=== PATIENT | male | born 1990 | race Caucasian/White ===

== ENCOUNTER 2024-08-22 14:45 | Emergency (ER) | payer BC, SELFPAY ==
[2024-08-22] VITALS (8 sets, daily range): BP systolic 95–105; BP diastolic 61–77; BMI 43.1
[2024-08-22 15:31] LABS: % Basophils 0.4 % (0-2); % Eosinophils 3.4 % (0-6); % Immature Granulocytes 0.4 % (0-0.5); % Monocytes 5.9 % (1.7-9.3); % Neutrophils 58.9 % (42.2-75.2); Absolute Eosinophils 0.3 10^3/uL (0-0.7); Absolute Lymphocytes 2.6 10^3/uL (1.2-3.4); Absolute Monocytes 0.5 10^3/uL (0.1-0.6); Hematocrit 44.1 % (39.0-52.0); Hemoglobin 15.8 g/dL (13.0-18.0); Mean Corp Hgb Conc. 35.8 g/dL (33.0-37.0); Mean Corpuscular Volume 83.8 fL (80.0-94.0); Mean Platelet Volume 8.4 fL (7.4-10.4); Nucleated Red Blood Cells % 0 % (-); Platelet Count 335 10^3/uL (130-400); Red Blood Cell Count 5.26 10^6/uL (4.70-6.10); Red Cell Dist. Width 13.2 % (11.5-14.5); White Blood Cell Count 8.4 10^3/uL (4.8-10.8)
[2024-08-22 15:41] LABS: ALT (SGPT) 33 U/L (0-50); AST (SGOT) 28 U/L (17-59); Albumin 4.4 g/dl (3.5-5.0); Alkaline Phosphatase 93 U/L (38-126); Blood Urea Nitrogen 20 mg/dl (9-20); Calcium 9.6 mg/dl (8.4-10.2); Carbon Dioxide 23 mmol/L (22-30); Chloride 106 mmol/L (98-107); Glucose 135 mg/dl (70-99); Potassium 4.1 mmol/L (3.5-5.1); Sodium 138 mmol/L (135-145); Total Bilirubin 0.5 mg/dl (0.2-1.3); Total Protein 7.5 g/dl (6.3-8.2); eGFR > 60.00
[2024-08-22 16:18] LABS: TSH Reflex To Free T4 1.76 uIU/ml (0.47-4.68)
--- NOTE | 2024-08-22 16:23 | ED.GENMED ---
History of Present Illness
General
Chief Complaint: Heart Rate Problem
Source: patient and spouse
Exam Limitations: none
Time Seen by Provider: 08/22/24 16:06
Nursing documentation reviewed up to this point in time: agreed with
History of Present Illness
History of Present Illness:
34-year-old male PAF, on no meds, 1 prior admission to [place] seen by cardiology told to see pulmonary for sleep apnea started on BiPAP he does not snore anymore, he thinks he went into A-fib this morning, palpitations he felt sweaty, took
metoprolol as he was previously instructed put on his Apple Watch showed his heart rate was greater than 150, no documented fever, no chest pain no shortness of breath, previously seen by [place] cardiology but would like to follow-up here with
[place] [facility]ology
Past History
Past History
ED Past Medical History: Arrthythmia, HTN and Other (Migraines)
ED Past Surgical History: Other (Cervical Disc Arthroplasty, [place] Teeth Extraction)
Patient has exhibited threatening behavior?: No
Social History
Tobacco: Non-smoker
Alcohol: None
Drug: None
Personal:
Living: with family
Employment: Employed
Family History
Family History: Diabetes, Hypertension and Other (HLD)
Review of Systems
Review of Systems
All Other Systems: Not applicable
Constitutional: Reports other (Sweats); Denies fever or fatigue
Respiratory: Denies cough or trouble breathing
Cardiac: Reports diaphoresis and palpitations
ABD/GI: Reports no symptoms
: Reports no symptoms
Musculoskeletal: Reports no symptoms
Neurological: Reports dizzy
Endocrine: Reports no symptoms
Phy Exam
Physical Exam
Physical Exam:
Physical Exam
General: no apparent distress, not acutely ill
Neck: No jaundice
Heart: Tachycardic
Lungs: no acute respiratory distress. clear bilaterally
Abdomen: Nontender
Neuro: alert and oriented. no focal neurological deficits
Skin: no rash
Psychiatric: well kept. interactive and cooperative
Extremities: no edema. no calf tenderness.
Course
Orders/Labs/Results
Orders:
Orders
08/22/24 14:46
Electrocardiogram (*1) Urgent
Reason for Study: Atrial Fibrillation
EKG- Treatment ONCE
08/22/24 15:17
Complete Blood Count/With Diff Urgent
Comprehensive Metabolic Panel Urgent
TSH Reflex To Free T4 Urgent
08/22/24 16:18
Diltiazem HCl [Cardizem] 10 mg IV NOW STA
08/22/24 16:30
Diltiazem 125 mg/125 ml Nss [Cardizem] 125 mg in 125 ml IV PER PROTOCOL
Initial dose in mg/hr, then titrate:: 5
Titrate to keep:: Heart rate 80-100 bpm
Titrate by mg/hr:: 5 mg/hr
Frequency of titrations (minutes):: 15
Maximum dose in mg/hr:: 15
08/22/24 18:37
Diltiazem [Cardizem] 30 mg PO NOW STA
08/22/24 18:38
Apixaban [Eliquis] 5 mg PO NOW STA
Abnormal Lab Results
08/22/24
15:17
Glucose 135 H mg/dl
(70-99)
08/22/24 15:17
08/22/24 15:17
Vital Signs
Initial and Last Documented VS:
Initial Vital Signs
Temp Pulse Resp BP Pulse Ox
97.7 F 80 18 104/68 97
08/22/24 15:04 08/22/24 15:04 08/22/24 15:04 08/22/24 15:04 08/22/24 15:04
Last Documented Vital Signs
Temp Pulse Resp BP Pulse Ox
98.5 F 81 26 97/63 93
08/22/24 16:18 08/22/24 18:45 08/22/24 18:30 08/22/24 18:45 08/22/24 18:30
MDM/Problems Addressed
Differential Diagnosis Includes:
A-fib a flutter SVT
MDM/Problems Addressed:
Palpate
Chronic conditions affecting care: Arrhythmia
Acute Exacerbation and/or Progression of Chronic Illness: Arrhythmia
*Pulse Oximetry
Patient hypoxic: no
*EKG
Interpreted by ED Provider?: Yes
Interpretation: normal
Comparison EKG: no comparison EKG present
Heart Rate: 160
Rate: tachycardiac
Rhythm: a-fib
Ischemia: non-specific ST changes
*Votator Machine Operator Interpretation
Rate: tachycardiac
Interpretation: abnormal
Heart Rate: 156
Rhythm: a-fib
*Critical Care Note
Total Time (30-74mins, 75-104mins- exclusive of procedures): 30
Update Note
Update Note:
6:45 PM update patient feeling better is now in a rate controlled A-fib had a low dose of IV Cardizem reviewed management options including DC cardioversion DC on a NOAC, versus DC on a NOAC and rate control meds follow-up as an outpatient, he
prefers to go home without cardioversion which is not unreasonable clear that he went into the arrhythmia this morning about 12 hours ago I did reach out to local cardiology to get him follow-up appointment as he prefers to follow-up here he will
use Cardizem as opposed to metoprolol as he appears to improve desponded well to his here in the intravenous form
ED Attending Note
-
Portions of this chart may have been created with voice recognition software.� Occasional wrong word or��sound alike� substitutions may have occurred due to the inherent limitations of voice recognition software.
Discharge Plan
Departure
Patient Disposition: Home (Routine Discharge)
Date of Disposition: 08/22/24
Time of Disposition: 19:06
Patient with high blood pressure during this ER visit?: No
Condition: Good
Covid-19: Not Applicable
Discharge Problem:
Atrial fibrillation and flutter
Instructions: Atrial Fibrillation (DC)
Prescriptions:
New
diltiazem HCl [Cardizem] 30 mg tablet
30 mg PO BID Qty: 60 0RF
No Action
Metoprolol
10 mg PO PRN PRN (Reason: atrial fib )
Referrals:
Giovany Vilchis MD [Family Provider] -
Edgar Lu MD [Active] - Next open appointment
Activity Restrictions/Additional Instructions:
Stop metoprolol
Start Cardizem 30 mg twice a day
Start Eliquis 5 mg twice a day
Follow-up with Dr. Lu Cardiology
Interventions
Interventions:
*Risk Screen - Suicide Last Done: 08/22/24 15:04
*General Assessment Last Done: 08/22/24 15:04
*Neglect/Abuse Screening Last Done: 08/22/24 15:04
ED- Fall Risk Assessment Last Done: 08/22/24 16:18
*ED COVID-19 Vaccine History Last Done: 08/22/24 16:18
ED- Cardiac Assessment Last Done: 08/22/24 16:18
ED- Pulmonary Assessment Last Done: 08/22/24 16:18
Discharge Date and Time
Print Language: ITALIAN
[2024-08-22] MEDS: CARDIZEM 10 MG IV (16:26)
[2024-08-22] MEDS: CARDIZEM 125 IV (16:27)
[2024-08-22] MEDS: CARDIZEM 30 MG PO (18:45)
[2024-08-22] MEDS: ELIQUIS 5 MG PO (18:46)
--- NOTE | 2024-08-22 19:06 | EDRN ---
cardizem gtt off per bhavana Benitez and oral diltiazem administered
== END 2024-08-22 19:28 | disposition home or self-care (01) ==
LOC: EMR 14:45
PROVIDERS: EMERGENCY PHYSICIAN Emergency Medicine; FAMILY PHYSICIAN Family Medicine
DX: I48.91 Unspecified atrial fibrillation (principal); I48.92 Unspecified atrial flutter; I10 Essential (primary) hypertension; G47.30 Sleep apnea, unspecified; Z79.01 Long term (current) use of anticoagulants; Z82.49 Family history of ischemic heart disease and other diseases of the circulatory system; Z83.3 Family history of diabetes mellitus; Z83.49 Family history of other endocrine, nutritional and metabolic diseases
CPT/HCPCS: 99283; 80053; 84443; 85025; 93005

== ENCOUNTER 2024-09-10 11:17 | Emergency (ER) | payer BC, SELFPAY ==
[2024-09-10 11:25] VITALS: BP 120/92
[2024-09-10 12:19] VITALS: BP 114/73
[2024-09-10 13:00] VITALS: BP 107/72
--- NOTE | 2024-09-10 13:30 | ED.GENMED ---
History of Present Illness
General
Chief Complaint: Heart Rate Problem
Source: patient and family
Exam Limitations: none
Time Seen by Provider: 09/10/24 12:57
Nursing documentation reviewed up to this point in time: agreed with
History of Present Illness
History of Present Illness:
34 yr old male presents to the ED for evaluation .
Pt has a history of A-fib however this morning was awoken at 5 AM the fluttering sensation in his watch told him he was in A-fib in the 160s. He did feel tingly all over. no chest pain/no shortness of breath. Currently he is asymptomatic. He was
seen here August 22 and was sent home on Cardizem and Eliquis. He stopped his eliquis 2 wks ago but has been taking his Cardizem.
Patient does admit to consuming an energy drink yesterday morning. reports they tried to get an appointment with cardiology but there were no appointments until November.
He does not smoke. very rare alcohol .
Past History
Past History
ED Past Medical History: Arrthythmia, HTN and Other (Migraines)
ED Past Surgical History: Other (Cervical Disc Arthroplasty, [place] Teeth Extraction)
Patient has exhibited threatening behavior?: No
Social History
Tobacco: Non-smoker
Alcohol: None
Drug: None
Personal:
Living: with family
Employment: Employed
Family History
Family History: Diabetes, Hypertension and Other (HLD)
Review of Systems
Review of Systems
Allergies reviewed?: Yes
Other source history: family
All Other Systems: ROS reviewed and negative except as documented in HPI and ROS
Constitutional: Reports no symptoms; Denies fever, fatigue or chills
Respiratory: Reports trouble breathing (pt felt sob with episode of elevated hr this am )
Cardiac: Reports palpitations ('fluttering ' in his chest at 5 am )
ABD/GI: Reports no symptoms; Denies abdominal pain, nausea or vomiting
: Reports no symptoms
Musculoskeletal: Reports no symptoms
Neurological: Reports no symptoms
Psychiatric: Reports no symptoms
Phy Exam
General Physical Exam
General Presentation: well appearing
General age: appears stated age
General Skin: warm and dry
General Habitus: normal
General Mental: alert
General Hydration: appears well hydrated
Cardiovascular Exam
Cardiovascular Exam: regular rate/rhythm, no murmur and normal peripheral pulses
Pulmonary Exam
Pulmonary Exam: lungs clear and no respiratory distress
Neurological Exam
Neurological Exam: alert and oriented x3
[place] Coma Scale
Eye Opening: Spontaneous
Verbal Response: Oriented
Motor Response: Obeys Commands
GCS Total Score: 15
Musculoskeletal Exam
Musculoskeletal Exam: full ROM
Skin Exam
Skin Exam: normal color and warm/dry
Psychiatric Exam
Psychiatric Exam: normal mood/affect
Course
Orders/Labs/Results
Orders:
Orders
09/10/24 11:18
ECG [Electrocardiogram (*1)] Urgent
Reason for Study: Atrial Fibrillation
EKG- Treatment ONCE
09/10/24 13:39
Cardiac Monitoring- Treatment ONCE
IV Insert/Care/Rem.- Treatment PRN
0.9% Sodium Chloride 1000 ml [Nss] 1,000 ml IV BOLUS
09/10/24 13:59
Complete Blood Count/With Diff Urgent
Comprehensive Metabolic Panel Urgent
TSH Reflex To Free T4 Urgent
09/10/24 16:09
Apixaban [Eliquis] 5 mg PO NOW STA
Abnormal Lab Results
09/10/24
13:59
Glucose 100 H mg/dl
(70-99)
09/10/24 13:59
09/10/24 13:59
Vital Signs
Initial and Last Documented VS:
Initial Vital Signs
Temp Pulse Resp BP Pulse Ox
97.5 F 77 16 120/92 100
09/10/24 11:25 09/10/24 11:25 09/10/24 11:25 09/10/24 11:25 09/10/24 11:25
Last Documented Vital Signs
Temp Pulse Resp BP Pulse Ox
97.5 F 104 24 107/72 96
09/10/24 11:25 09/10/24 13:45 09/10/24 13:45 09/10/24 13:00 09/10/24 13:45
Photo Mask Inspector consulted with Physician
Photo Mask Inspector consulted with physician?: Yes
Name of Physician Consulted: ryan
MDM/Problems Addressed
Differential Diagnosis Includes:
not limited to: afib.
MDM/Problems Addressed:
As documented patient is a 34-year-old male that was seen here August 22 for A-fib discharged on Cardizem and Eliquis however this morning felt a fluttering in his chest and presented to the ER in A-fib with a heart rate of 97.
He converted to normal sinus rhythm however did disclose to me that he stopped taking his Eliquis several weeks ago because of the cost. He also was not able to get an appoint with cardiology until November. Patient was monitored here had labs checked
and they were unremarkable including TSH. He did have an energy drink yesterday
He had no CC of chest pain shortness of breath. He is nontoxic and has remained in normal sinus rhythm here in the ER.
Patient has remained asymptomatic. Repeat EKG hr in the 60s NSR.
Patient was given a coupon for 30 days off Eliquis we will send a new prescription to his pharmacy along with a new prescription of Cardizem just to ensure that he has enough supply.
I did speak with him regarding the dangers of not taking blood thinner while in A-fib including the risk of stroke. He does verbalize understanding. I did reach out to cardiology who will facilitate a quicker appointment.
*Critical Care Note
Total Time (30-74mins, 75-104mins- exclusive of procedures): Not Applicable
ED Attending Note
-
Portions of this chart may have been created with voice recognition software.� Occasional wrong word or��sound alike� substitutions may have occurred due to the inherent limitations of voice recognition software.
Discharge Plan
Departure
Patient Disposition: Home (Routine Discharge)
Date of Disposition: 09/10/24
Time of Disposition: 16:04
Patient with high blood pressure during this ER visit?: No
Condition: Fair
Covid-19: Not Applicable
Discharge Problem:
Atrial fibrillation
Instructions: Atrial Fibrillation (DC), BLOOD PRESSURE
Prescriptions:
New
diltiazem HCl [Cardizem] 30 mg tablet
30 mg PO BID Qty: 30 0RF
Eliquis 5 mg tablet
5 mg PO BID Qty: 60 0RF
No Action
Metoprolol
10 mg PO PRN PRN (Reason: atrial fib )
diltiazem HCl [Cardizem] 30 mg tablet
30 mg PO BID Qty: 60 0RF
Eliquis 5 mg tablet
5 mg PO BID Qty: 60 0RF
Referrals:
Dashawn Gold MD [Active] -
Giovany Vilchis MD [Family Provider] -
Stand Alone Forms: Return to Work
Activity Restrictions/Additional Instructions:
As discussed you were given new prescriptions for Eliquis and Cardizem. These were sent to your pharmacy.
Please take as directed.
Please avoid caffeine, coffee chocolate energy drinks etc.. And alcohol.
Please follow-up with cardiology if you do not hear from them in the next 1 to 2 days please give them a call to schedule an appointment as soon as possible
Return if any worsening of symptoms.
Interventions
Interventions:
*Risk Screen - Suicide Last Done: 09/10/24 11:25
*General Assessment Last Done: 09/10/24 12:19
*Neglect/Abuse Screening Last Done: 09/10/24 11:25
*ED- Fall Risk Assessment Last Done: 09/10/24 12:19
*ED COVID-19 Vaccine History Last Done: 09/10/24 12:19
ED- Cardiac Assessment Last Done: 09/10/24 12:19
ED- Pulmonary Assessment Last Done: 09/10/24 12:19
Discharge Date and Time
Print Language: CHINESE
[2024-09-10 14:14] LABS: % Basophils 0.4 % (0-2); % Eosinophils 4.4 % (0-6); % Immature Granulocytes 0.4 % (0-0.5); % Lymphocytes 33.1 % (20.5-51.1); % Monocytes 5.6 % (1.7-9.3); % Neutrophils 56.1 % (42.2-75.2); Absolute Eosinophils 0.3 10^3/uL (0-0.7); Absolute Lymphocytes 2.4 10^3/uL (1.2-3.4); Absolute Monocytes 0.4 10^3/uL (0.1-0.6); Absolute Neutrophils 4.1 10^3/uL (1.4-6.5); Hematocrit 46.2 % (39.0-52.0); Hemoglobin 16.4 g/dL (13.0-18.0); Mean Corp Hgb Conc. 35.5 g/dL (33.0-37.0); Mean Corpuscular Hgb 30.6 pg (27.0-31.0); Mean Corpuscular Volume 86.2 fL (80.0-94.0); Mean Platelet Volume 8.7 fL (7.4-10.4); Nucleated Red Blood Cells % 0 % (-); Platelet Count 289 10^3/uL (130-400); Red Blood Cell Count 5.36 10^6/uL (4.70-6.10); Red Cell Dist. Width 13.5 % (11.5-14.5); White Blood Cell Count 7.3 10^3/uL (4.8-10.8)
[2024-09-10 14:29] LABS: ALT (SGPT) 27 U/L (0-50); AST (SGOT) 29 U/L (17-59); Albumin 4.5 g/dl (3.5-5.0); Alkaline Phosphatase 108 U/L (38-126); Blood Urea Nitrogen 17 mg/dl (9-20); Calcium 9.5 mg/dl (8.4-10.2); Carbon Dioxide 26 mmol/L (22-30); Chloride 105 mmol/L (98-107); Glucose 100 mg/dl (70-99); Potassium 4.1 mmol/L (3.5-5.1); Sodium 139 mmol/L (135-145); Total Bilirubin 0.8 mg/dl (0.2-1.3); Total Protein 7.7 g/dl (6.3-8.2); eGFR > 60.00
--- NOTE | 2024-09-10 14:44 | CM ---
Patient seen at bedside with family member. Patient requested coupon for Eliquis and CM provided 10$ copay coupon. PA made aware. Patient and family member declined any further needs at this time.
[2024-09-10 14:59] LABS: TSH Reflex To Free T4 1.47 uIU/ml (0.47-4.68)
[2024-09-10 16:20] VITALS: BP 137/70
[2024-09-10] MEDS: ELIQUIS 5 MG PO (16:35)
== END 2024-09-10 16:38 | disposition home or self-care (01) ==
LOC: EMR 11:17
PROVIDERS: Nurse Practitioner; EMERGENCY PHYSICIAN Emergency Medicine; FAMILY PHYSICIAN Family Medicine
DX: I48.91 Unspecified atrial fibrillation (principal); E78.00 Pure hypercholesterolemia, unspecified; I10 Essential (primary) hypertension; Z82.49 Family history of ischemic heart disease and other diseases of the circulatory system; Z83.3 Family history of diabetes mellitus; Z83.49 Family history of other endocrine, nutritional and metabolic diseases
CPT/HCPCS: 99283; 80053; 84443; 85025; 93005

== ENCOUNTER → 2024-10-17 08:04 | Outpatient (REF) | payer BC, SELFPAY | LOC: RCS 08:04 | PROVIDERS: ATTENDING PHYSICIAN Internal Medicine; FAMILY PHYSICIAN Family Medicine | DX: I48.0 Paroxysmal atrial fibrillation (principal); I10 Essential (primary) hypertension; E66.01 Morbid (severe) obesity due to excess calories | CPT/HCPCS: 93306 ==

== ENCOUNTER 2024-11-25 09:24 | Day surgery (SDC) | payer BC, SELFPAY ==
[2024-11-21 12:06] LABS: Hematocrit 38.9 % (39.0-52.0); Hemoglobin 14.2 g/dL (13.0-18.0); Mean Corp Hgb Conc. 36.5 g/dL (33.0-37.0); Mean Corpuscular Hgb 30.5 pg (27.0-31.0); Mean Corpuscular Volume 83.5 fL (80.0-94.0); Mean Platelet Volume 8.5 fL (7.4-10.4); Platelet Count 279 10^3/uL (130-400); Red Blood Cell Count 4.66 10^6/uL (4.70-6.10); Red Cell Dist. Width 13.2 % (11.5-14.5); White Blood Cell Count 5.5 10^3/uL (4.8-10.8)
[2024-11-21 12:37] LABS: ALT (SGPT) 34 U/L (0-50); AST (SGOT) 31 U/L (17-59); Albumin 4.9 g/dl (3.5-5.0); Alkaline Phosphatase 79 U/L (38-126); Blood Urea Nitrogen 14 mg/dl (9-20); Calcium 9.4 mg/dl (8.4-10.2); Carbon Dioxide 25 mmol/L (22-30); Chloride 108 mmol/L (98-107); Glucose 98 mg/dl (70-99); Potassium 4.2 mmol/L (3.5-5.1); Sodium 140 mmol/L (135-145); Total Protein 7.9 g/dl (6.3-8.2); eGFR > 60.00
[2024-11-21 13:14] VITALS: BMI 42.3
[2024-11-25] VITALS (17 sets, daily range): BP systolic 107–129; BP diastolic 62–88
[2024-11-25 13:19] LABS: ACT-LR - POC 311 Seconds (116-155)
[2024-11-25 13:38] LABS: ACT-LR - POC 311 Seconds (116-155)
--- NOTE | 2024-11-25 14:19 | ITS.CL.ABL ---
Emergency Management Specialist - Ablation
Ablation
Procedure Report:
AFIB / A flutter ablation:
Mr. Cheatham is a very pleasant 34 yr old gentleman with medical history significant for symptomatic paroxysmal atrial fibrillation is here in the EP lab for atrial fibrillation ablation
Date of Procedure:
11/25/2024
Indications:
Symptomatic paroxysmal atrial fibrillation
Pre-Operative Diagnosis:
Paroxysmal atrial fibrillation
Post-Operative Diagnosis:
Paroxysmal atrial fibrillation
Procedure Performed:
Atrial fibrillation ablation with wide area circumferential ablation (WACA) approach for pulmonary vein isolation
Performing Physician:
Elham Richter MD
Assistants:
EP staff
Anesthesia:
See anesthesia records
Detailed Description of the Procedure:
Written informed consent was obtained from the patient after a full explanation of the risks and benefits of the procedure including the risks of sedation and anesthesia.
The patient was brought to the electrophysiology laboratory in stable condition in fasting state. Continuous electrocardiographic and hemodynamic monitoring was initiated.
The initial rhythm was sinus rhythm.
The procedure site was meticulously prepared with surgical scrub and allowed to dry with no pooling. Sterile draping was applied to cover the procedure site. The image intensifier was draped with sterile bag and positioned over the patient. After
infusion of local anesthetic, vascular access was obtained under ultrasound guidance and sheaths were placed over guide wire as detailed below.
The images of the ultrasound of the femoral vessels were stored in patient chart.
Sheath and Catheter Placement:
In the right femoral vein, a 10-Japanese sheath was placed under ultrasound guidance for use during the ablation procedure. In the right femoral vein, another 9-Fr sheath was placed for use during intracardiac echo procedure.
The sheaths were upgraded as needed during the case. Intracardiac catheters were positioned using direct fluoroscopic guidance.� ICE catheter was placed in RA. The following catheters / sheaths were placed
Sheaths:
��������� Agilis sheath in right femoral vein upgraded from 10Fr in right femoral vein
��������� 9Fr in right femoral vein
Catheters:
��������� The Affera Sphere 9 catheter -bidirectional D/F� - at locations of HRA, LA and LV.
��������� ICE catheter -AccuNav -� at locations of RA, SVC, and RV.
Heparin was initiated after the access was obtained.
Intracardiac ECHO:
An 8-Japanese AcuNav intracardiac ECHO (ICE) probe was advanced through the 9-Japanese sheath in the left femoral vein into the right atrium under fluoroscopic and ICE ultrasound image guidance and a baseline ECHO study was performed. The left atrial
size was mildly dilated. There was trace tricuspid regurgitation. The aortic valve was grossly normal. There was normal left ventricular size and function. There is a trace pericardial effusion. The OMER has baseline normal velocities. The pulmonary
had good flow identified.
During the procedure, ICE was used for monitoring of complications, guidance of trans-septal puncture, monitor the catheter position and tracking ablation lesions. No change in the pericardial space noted throughout the procedure.
Trans-septal Puncture:
Heparin was initiated and infused to maintain appropriate ACT. A J-tipped guidewire was advanced through into the superior vena cava under fluoroscopic and ICE guidance. The Agilis sheath with BRK needle was advanced into the superior vena cava over
the guidewire. The apparatus was withdrawn until it was in contact with the fossa ovalis. The position was adjusted based on fluoroscopy and ultrasound images from ICE. Under fluoroscopic, hemodynamic and ICE ultrasound guidance, left atrium was
cannulated by advancing the needle. Once atrial septum was cannulated, the needle was pulled back and the guide wire was advanced through the needle into the left atrium. The guide wire was advanced into the left superior pulmonary vein. Both the
sheath and the dilator was advanced into the left atrium. The dilator with the needle was withdrawn. Blood was aspirated from the Agilis sheath and arterial blood confirmed. The sheath was flushed. Saline injection noted into the left atrium on ICE.
The waveform of the LA pressure was recorded. The mapping catheter was advanced in the Agilis sheath into the left pulmonary vein.
3D Electroanatomic Mapping:
Using the Sphere 9 Affera catheter advanced through Agilis sheath into the left atrium, an electroanatomic map (EAM) of the left atrium was created using [employer]� mapping system with Prism-1 software. The map was used for localization of catheter
position and tacking of ablation lesions. The EAM of the left atrium showed a total of 4 PVs with a two left and two right sided pulmonary veins with all electrically connected to the body the LA. It showed no significant scar on the posterior wall
of the LA. The LA was dilated in size.
Following the EAM, preparation were made for ablation.
Ablation:
Ablation # 2: Pulmonary vein Isolation:
Glycopyrrolate 0.2 mg was given prior to the placement of ablation.
Pulsed field ablation was performed using an open irrigation, bidirectional, contact sensing, dual energy ablation catheter ([employer] sphere -9) by completing the circumferential lesions around the left and right pulmonary veins achieving pulmonary
vein isolation.
Confirmation of the PVI and bidirectional block:
Following achievement of entrance block at the pulmonary veins, pacing from the Sphere 9 affera catheter in each of the four veins at 20 milliamps for 4 milliseconds showed entrance and exit block.
The LA was mapped with The [employer]� mapping system with Prism-1 software in sinus rhythm confirming the line of block at the ablation lesions lines.
�
EP study:
Sinus Node Function: The sinus node functions are within acceptable normal range.
Atrioventricular Jasper Function: �Normal AV conduction noted with normal AV jasper conduction time.
Procedure End
ICE study was done again that showed no epicardial accumulation. No complications noted.
Following the completion of the EP study, catheters were removed. Protamine 30 mg was given at the end of the procedure and ACT was checked repeatedly. The sheaths were removed and hemostasis achieved with VASCADE and manual compression after
acceptable ACT is achieved.
Left atrial Pressure:
Pre-Procedure: Mean LA pressure was 6mmHg
Post-Procedure: Mean LA pressure was 10mmHg
Estimated Blood loss:
<10 cc
Specimens Removed:
None.
Implants / Devices:
None
Urine output:
None
Packs / Drains/ Tubes:
None
Instrument / Sponge Count Correct:
Yes
Complications of the Procedure:
None
Condition of Patient at Time of Transfer:
Hemodynamically stable with no neurological or vascular compromise.
Summary:
��������� Successful atrial fibrillation ablation with circumferential bidirectional line of block at pulmonary vein antra (Pulmonary vein isolation)
Figures from the Procedure:
Figure 1: The electroanatomic mapping (EAM) of the left atrium with bipolar voltage (purple indicates normal electrical activity with red as no myocardial muscle electric activity indicating a line of block or scar.
[2024-11-25] MEDS: ANESTHETIC LOZENGE 1 LOZENGE PO (14:57)
--- NOTE | 2024-11-25 16:35 | W.PN.UPDATE ---
Update Note
Progress Note Update
Pt seen post PFA. Right groin site with vascade closure, no ht/bleeding, oob ambulating, urinating without difficulty. Post EKG NSR 80s, no acute changes. Resume eliquis tonight at usual time. Followup at [facility] as scheduled. Home today if groin
site/tele remain stable.
== END 2024-11-25 16:40 | disposition home or self-care (01) ==
LOC: CATH 09:24
PROVIDERS: ATTENDING PHYSICIAN Internal Medicine Cardiovascular Disease; FAMILY PHYSICIAN Family Medicine
DX: I48.0 Paroxysmal atrial fibrillation (principal); I49.8 Other specified cardiac arrhythmias; I10 Essential (primary) hypertension; R07.89 Other chest pain; E66.01 Morbid (severe) obesity due to excess calories; Z79.01 Long term (current) use of anticoagulants; Z79.899 Other long term (current) drug therapy; Z68.41 Body mass index [BMI] 40.0-44.9, adult
CPT/HCPCS: C1769; C1733; C1766; C1892; C1759; 36415; 80053; 85027; 85347; 86850; 86900; 86901; 93005; 93656; C1760